=== PATIENT | female | born 2000 | race Caucasian/White ===

== ENCOUNTER 2025-02-25 11:34 | Inpatient (IN) | payer OTHER, MEDICAID, SELFPAY ==
[2025-02-25] VITALS (73 sets, daily range): BP systolic 100–127; BP diastolic 52–76; PULSE 85–137; RESP 16–18; TEMP 36.3–37.9; O2SAT 90–100; BMI 37.3
--- NOTE | 2025-02-25 11:39 | PCM.HP.OB ---
HPI - General General Date of Admission: 02/25/25 Date of Service: 02/25/25 Chief Complaint: contractions HPI Narrative HARIS GUILLEN, is a 24 F who presents 1 para 0 who presents at 40-5/7 weeks complaining of contractions that began in the middle of the night they progressively got worse and at approximately 9 AM they became strong enough she could not walk or talk through them. She denies any gross vaginal bleeding or leaking of fluid. She has had good movement. has been complicated today by celiac disease Maternal Data Information Final MIRA: 02/20/25 Gestational age: 40 5/7 PFSH PFS Home Medications ?Medication ?Instructions ?Recorded ?Last Taken ?Type PNV 153-FA 400 mcg-om3 35 mg-dha 2 tab PO .day 02/25/25 02/24/25 09:00 History 25 mg-epa 5 mg-fish oil chew 2 tabs tablet ( Gummies) aspirin 81 mg chewable tablet 81 mg PO DAILY 02/25/25 02/24/25 09:00 History (Aspirin Childrens) 81 mg Allergy/AdvReac Type Severity Reaction Status Date / Time No Known Allergies Allergy Verified 02/25/25 09:17 ROS Constitutional Constitutional: Denies fatigue, fever(s) or malaise Eyes Eyes: Denies change in vision ENT HEENT: Denies dizziness or headache(s) Cardiovascular Cardiovascular: Denies chest pain, dyspnea or lightheadedness Respiratory/Chest Respiratory/Chest: Denies cough or dyspnea Gastrointestinal Gastrointestinal: Denies change in bowel habits Genitourinary Genitourinary: Denies burning urination or genital lesions Integumentary Integumentary: Denies rash Neurologic Neurologic: Denies confusion, dizziness, headache(s), numbness or weakness Vital Signs Vital Signs Vital Signs: 02/25/25 08:41 02/25/25 08:41 02/25/25 08:41 Temperature Temperature Source Temporal Pulse Rate 94 Respiratory Rate Blood Pressure 123/76 H BP Systolic 123 BP Diastolic 76 Pulse Ox 02/25/25 08:41 02/25/25 08:41 02/25/25 08:41 Temperature Temperature Source Pulse Rate 94 Respiratory Rate 18 Blood Pressure BP Systolic BP Diastolic Pulse Ox 97 02/25/25 08:41 Temperature 97.9 F Temperature Source Pulse Rate Respiratory Rate Blood Pressure BP Systolic BP Diastolic Pulse Ox Weight Weight: 105 kg Body Mass Index (BMI) 37.3 Physical Exam Narrative cervix 3-4/70 -2, BBOW Const alert and no apparent distress General Appearance: cooperative HEENT normocephalic Resp normal respiratory effort Cardio regular rate GI soft to palpation GI Narrative: gravid, nontender, appropriate for gestational age Extremity no calf tenderness General Extremity: edema Skin no wounds Rashes: No rashes noted Psych activity/motor behavior normal Labs Labs Labs: No Data to Display Assessment & Plan (1) Spontaneous onset of labor: COMMENT: Group B strep is negative. Estimated weight is less than 4500 g and pelvis clinically adequate to expect vaginal delivery. Admit for labor. May have routine pain control measures as needed. Will consider artificial rupture of membranes or Pitocin as needed to augment labor. Patient and her partner are in agreement with plan. Dr. Quintana on-call is aware. (2) 40 weeks gestation of :
[2025-02-25] MEDS: Lactated Ringers 1,000 ML 50 ML IV (12:05)
[2025-02-25 12:35] LABS: Hematocrit 37.9 % (37-47); Hemoglobin 12.6 g/dL (12.0-15.0); Immature Granulocytes Count 0.190 X10^3/uL (0.0-0.0); Mean Corp Hgb Conc 33.2 g/dL (32-36); Mean Corpuscular Volume 85.6 fL (81-99); Mean Platelet Vol. 12.0 fl (6.2-12.0); NRBC Flagged by Analyzer 0 % (0-5); Platelet Count 246 K/mm3 (150-450); RBC Distribution Width CV 13.1 % (11.6-14.6); RBC Distribution Width SD 40.5 fl (35.1-43.9); Red Blood Count 4.43 M/mm3 (4.2-5.4); White Blood Count 15.0 K/mm3 (4.4-11.0)
[2025-02-25] MEDS: Lactated Ringers 1,000 ML 999 ML IV (13:03)
[2025-02-25 13:26] LABS: Syphilis Antibodies Nonreactive (Nonreactive)
[2025-02-25] MEDS: fentaNYL-bupivacaine (epidural) 100 ML BAG EPIDURAL ×2 (13:33→18:16)
[2025-02-25] MEDS: Lactated Ringers 1,000 ML 200 ML IV ×2 (15:56→20:21)
--- NOTE | 2025-02-25 20:13 | NURSING ---
pt being intermittently straight cathed.
--- NOTE | 2025-02-25 21:19 | EX.PCM.OBVAG ---
Maternal Data Information MIRA Calculator Estimated Delivery Date Method Current WG Current Estimate 02/20/25 Manual 40w 5d Vaginal Delivery Maternal Presentation Maternal Presentation: Active Labor Vaginal Delivery Information Procedure Performed: Spontaneous Vaginal Delivery Surgeon/Practitioner: Valeria Quintana Date of Procedure: 02/25/25 Pre-Procedure Diagnosis: Labor Post-Procedure Diagnosis: Labor Type of anesthesia: Epidural Estimated Blood Loss: 200ml Findings Description of procedure: Called to room when patient C/C/+2. She was prepped & draped. Patient pushed well to deliver the head. head was gently guided to allow delivery of anterior and posterior shoulders. No excess traction placed on the head. The body delivered. 3VC clamped and cut in delayed fashion. Placenta delivered with gentle traction and good uterine tone obtained. Presentation: TED Amniotic Membrane Rupture Type: Artificial Amniotic Fluid Description: Moderate meconium Placental Delivery Description: Expressed Placenta Disposition: [facility] Specimen collected: No Cord Vessel Description: 3 Vessels Cord Entanglement: Around neck x 1, loose Nuchal Cord Compression: Without compression A Gender: Female (1 minute): 8 (5 minute): 9 Delayed Cord Clamping: Yes Booking Officer helicopter utility aircrewman: No Post Vaginal Deli Medications given after delivery: IV Pitocin Episiotomy Description: None Laceration: 1st degree (midline vaginal - repaired with 3-0 vicryl) Complication Complications: No
[2025-02-25] MEDS: Oxytocin 15 Units/NS 250ml 15 UNITS/250 ML IV.SOLN 334 UNITS IV (21:55)
[2025-02-25] MEDS: Oxytocin 15 Units/NS 250ml 15 UNITS/250 ML IV.SOLN 83 UNITS IV (22:25)
[2025-02-26] VITALS (12 sets, daily range): BP systolic 107–138; BP diastolic 55–72; PULSE 85–113; RESP 14–16; TEMP 36.2–36.8; O2SAT 97
--- NOTE | 2025-02-26 05:04 | PN.OBGYN_ITS ---
Subjective Subjective Denies complaints Objective Data Objective Data Vital Signs: Vital Signs Temp Pulse Resp BP Pulse Ox O2 Del Method 97.3 F L 100 14 134/72 H 97 Room Air 02/26/25 03:29 02/26/25 03:29 02/26/25 03:29 02/26/25 03:29 02/26/25 00:02 02/26/25 03:29 Oxygen Delivery Method Room Air Weight: 231 lb 7.766 oz Body Mass Index (BMI) 37.3 Intake & Output: Intake and Output for Last 24 Hours 02/24/25 02/25/25 02/26/25 23:59 23:59 23:59 Intake Total 2098.66 / 2098.66 1050 / 1050 Output Total 1400 / 1400 600 / 600 Balance 698.66 / 698.66 450 / 450 Lab / Micro Data 02/25/25 12:05 Labs: Laboratory Results - last 24 hr 02/25/25 12:05: WBC 15.0 H, RBC 4.43, Hgb 12.6, Hct 37.9, MCV 85.6, MCH 28.4, MCHC 33.2, RDW Std Deviation 40.5, RDW Coeff of [place] 13.1, Plt Count 246, MPV 12.0, Immature Gran % (Auto) 1.300 H, Neut % (Auto) 87.7 H, Lymph % (Auto) 6.6 L , [place] % (Auto) 4.1, Eos % (Auto) 0.0, Baso % (Auto) 0.3, Absolute Neuts (auto) 13.1 H, Absolute Lymphs (auto) 0.99, Nucleated RBC % 0, Syphilis Total Ab Nonreactive, Blood Type O POSITIVE, Antibody Screen NEGATIVE Physical Exam Const alert, oriented x3 and no apparent distress HEENT normocephalic GI soft to palpation, non-tender and non-distended GI Narrative: fundus firm, mid & below umbilicus Extremity normal to inspection and no calf tenderness Assessment & Plan (1) Vaginal delivery: COMMENT: PPD#1 PLAN: Plan Routine care
[2025-02-27 01:54] VITALS: BP 113/57; PULSE 85; PULSE 88; RESP 18; TEMP 36.8; O2SAT 96
[2025-02-27 01:55] VITALS: PULSE 82; O2SAT 96
[2025-02-27 08:42] VITALS: BP 113/68; PULSE 85; RESP 16; TEMP 36.1
[2025-02-27 08:43] VITALS: BP 113/68; PULSE 85
--- NOTE | 2025-02-27 10:45 | PCM.PN.OB ---
Subjective Subjective Denies complaints Objective Data Objective Data Vital Signs: Vital Signs Temp Pulse Resp BP Pulse Ox O2 Del Method 97 F L 85 16 113/68 96 Room Air 02/27/25 08:42 02/27/25 08:43 02/27/25 08:42 02/27/25 08:43 02/27/25 01:55 02/27/25 08:42 Oxygen Delivery Method Room Air Weight: 231 lb 7.766 oz Body Mass Index (BMI) 37.3 Intake & Output: Intake and Output for Last 24 Hours 02/25/25 02/26/25 02/27/25 23:59 23:59 23:59 Intake Total 2098.66 / 2098.66 1050 / 1050 Output Total 1400 / 1400 600 / 600 Balance 698.66 / 698.66 450 / 450 Lab / Micro Data 02/25/25 12:05 Physical Exam Const alert, oriented x3 and no apparent distress HEENT normocephalic GI soft to palpation, non-tender and non-distended GI Narrative: fundus firm, mid & below umbilicus Extremity normal to inspection and no calf tenderness Assessment & Plan (1) Vaginal delivery: COMMENT: PPD#2 PLAN: Plan D/c home
--- NOTE | 2025-02-27 10:46 | PCM.DC.SUM ---
Providers Date of Admission: 02/25/25 Primary Care Physician: Dr. Solomon Patel MD Reason For Visit: VAGINAL DELIVERY Diagnosis Discharge Diagnosis (1) Vaginal delivery: Status: Acute Code(s): O80 - Encounter for full-term uncomplicated delivery Plan D/c home Medications at Discharge Home Medications PNV 153-FA 400 mcg-om3 35 mg-dha 25 mg-epa 5 mg-fish oil chew tablet ( Gummies) 2 tab PO .day 02/25/25 acetaminophen 500 mg tablet 1,000 mg (2 x 500 mg) PO Q6H PRN PRN Pain 1-10 Or Fever #0 tabs 02/27/25 ibuprofen 600 mg tablet 600 mg PO Q6H PRN PRN Pain Score 1-10 #0 tabs 02/27/25 Hospital Course Operations None Procedures None Summary of Care Provided Minutes Spent on Discharge: 15 Weight / BMI Weight Weight: 231 lb 7.766 oz Body Mass Index (BMI) 37.3 ABG / Lab / Microbiology Data 02/25/25 12:05 D/C Instructions Discharge Activity: May Shower May resume sexual activity in: 6 weeks Weight Bearing Status: Weight bearing as tolerated Call your doctor if you observe: Fever of 101 or Higher, Coldness, Increased Pain, Change in Color, Inability to urinate, Inability to have a bowel movement, Using more than 1 pad per hour, Shortness of breath, Dizziness, Fainting spells, Chest pain, Increased palpitations (irregular heartbeat), Calf discomfort and Uncontrolled pain DC O2, CPAP, BIPAP Needs Home O2 Discharge instructions: No Please Follow Up With: Valeria Quintana MD When: Follow up in 2 and 6 weeks for visits. Meaningful Use Info Meaningful Use Meaningful Use Diagnoses (Choose all that apply): None applicable Discharge Plan Admission Admit Date/Time: 02/25/25 11:34 Primary Reason for Your Visit: Vaginal delivery Attending Provider: Valeria Quintana Primary Care Provider: Solomon Patel Discharge Orders/Prescriptions Prescriptions: New acetaminophen 500 mg Tablet 1,000 mg PO Q6H PRN PRN (Reason: Pain 1-10 Or Fever) Qty: 0 0RF ibuprofen 600 mg Tablet 600 mg PO Q6H PRN PRN (Reason: Pain Score 1-10) Qty: 0 0RF Continued Gummies 400 mcg-35 mg- 25 mg-5 mg tablet,chewable 2 tab PO .day Discontinued aspirin [Aspirin Childrens] 81 mg tablet,chewable 81 mg PO DAILY Referrals / Follow Up: Solomon Patel MD [Primary Care Provider] - Disposition Disposition (needs filled in before D/C Order can be placed): Home, Self Care
--- NOTE | 2025-03-03 11:41 | NURSING ---
F/up phone call attempted, no ans, LVM
== END 2025-02-27 11:50 | disposition home or self-care (01) | DRG 807 ==
LOC: WPOUT 11:39 → WP 11:39
PROVIDERS: Obstetrics & Gynecology; Admitting Provider Obstetrics & Gynecology; PCP Internal Medicine; Referring Provider Obstetrics & Gynecology; Visit Provider Obstetrics & Gynecology
DX: O69.81X0 Labor and delivery complicated by cord around neck, without compression, not applicable or unspecified (principal); Z37.0 Single live birth; O70.0 First degree perineal laceration during delivery; O77.0 Labor and delivery complicated by meconium in amniotic fluid; Z3A.40 40 weeks gestation of pregnancy
CPT/HCPCS: 59025; 59050; 85025; 86780; 86850; 86900; 86901; 99221; G0378